=== PATIENT | male | born 1955 | race Caucasian/White ===

== ENCOUNTER 2019-01-23 21:42 | Emergency (ER) | payer MEDICAID ==
[~2019-01-23] VITALS: Wt 69.0 kg
[~2019-01-23 21:42] MED LIST: CIPR500T4 PO; METR500T PO; TRAM50TA2 PO
[2019-01-23 21:53] VITALS: BP 154/96; PULSE 75; RESP 18
--- NOTE | 2019-01-24 01:49 | ERD ---
ER Documentation Chief Complaint Chief Complaint RIGHT EYE REDNESS/ PAIN X'S 3 DAYS. DENIES TRAUMA HPI This is a 63-year-old male who presents to emerge department with complaints of right eye redness for about 3 days. Stated that he went to his primary care physician and was prescribed ketotifen. Patient developed lesions to the periorbital area. Denies eye trauma, changes in vision, pain in eye movement. Denies headache, head injury, loss of consciousness, dizziness, neck pain, neck stiffness, throat pain, difficulty swallowing, difficulty breathing lying flat, shoulder pain, chest pain, back pain, abdominal pain, nausea, vomiting, constipation, diarrhea, urinary symptoms, loss of bowel and bladder control, trauma, injury, falls, difficulty walking due to pain, numbness or tingling sensation, calf pain, recent travel, recent major surgery in the last 3 weeks, calf pain, recent long travel, recent exposure to any illness, recent antibiotic use in the last 3 months, fever, chills, seizures. Past medical history: Denies. Surgical history: Denies. Social: Denies smoking, use of alcoholic beverages, use of illegal drugs. ROS All systems reviewed and are negative except as per history of present illness. Medications Home Meds Active Scripts Gabapentin* (Gabapentin*) 100 Mg Capsule, 200 MG PO TID PRN for PAIN, #30 CAP Prov:DENYOSELINMARNIABRAHAM F 01/24/19 Acyclovir* (Zovirax*) 800 Mg Tablet, 800 MG PO 5 TIMES DAILY for 7 Days, TAB Prov:PASILABANMARNIAR F 01/24/19 Methylprednisolone* (Medrol* DOSE PACK) 4 Mg/Dose-Pack Tab.ds.pk, 4 MG PO . DIRECTED, #1 PACKET Prov:DENILAKAYCEEMARNIABRAHAM F 01/24/19 Tramadol HCl (Tramadol HCl) 50 Mg Tab, 50 MG PO Q6 PRN for PAIN, #20 TAB Prov:ANA ISSA. 07/11/15 Metronidazole* (Flagyl*) 500 Mg Tablet, 500 MG PO TID for 7 Days, TAB Prov:ANA ISSA 07/11/15 Ciprofloxacin Hcl* (Ciprofloxacin Hcl*) 500 Mg Tablet, 500 MG PO BID for 7 Days, TAB Prov:ANA ISSA. 07/11/15 Allergies Allergies: Coded Allergies: No Known Allergy (Unverified , 07/10/15) PMhx/Soc History of Surgery: No Anesthesia Reaction: No Hx Neurological Disorder: No Hx Respiratory Disorders: No Hx Cardiac Disorders: No Hx Psychiatric Problems: No Hx Miscellaneous Medical Probl: Yes (colon polyp 2017) Hx Alcohol Use: No Hx Substance Use: No Hx Tobacco Use: No Smoking Status: Never smoker Physical Exam Vitals Vital Signs Date Temp Pulse Resp B/P (MAP) Pulse Ox O2 O2 Flow FiO2 Time Delivery Rate 01/23/19 99.3 75 18 154/96 96 21:53 (115) Physical Exam Const: No acute distress Head: Atraumatic. Scalp has no vesicular lesions. Eyes: Left eye: No conjunctival injection. Good eye movement. No visual field loss. Right eye has conjunctival injection with no discharge. No pain in eye movement. No visual field loss. Right [place] feet has 2 lesions (upper and lower). ENT: Normal External Ears, Nose and Mouth. Nose: Noted multiple small vesicular lesions to right/midline and almost crossing the left side of the nose. Neck: Full range of motion. No meningismus. Resp: Clear to auscultation bilaterally Cardio: Regular rate and rhythm, no murmurs Abd: Soft, non tender, non distended. Normal bowel sounds Skin: No petechiae or rashes Back: No midline or flank tenderness Ext: No cyanosis, or edema Neur: Awake and alert. No neurological deficits. Psych: Normal Mood and Affect Results 24 hrs Current Medications Medications Dose Sig/Yulissa Start Time Status Last (Trade) Ordered Route PRN Stop Time Admin Dose Reason Admin Tetracaine 1 drop ONCE ONCE 01/24/19 DC HCl RIGHT EYE 02:00 (Tetracaine 01/24/19 02:01 0.5% Steri-Unit Harmony) Fluorescein 1 strip ONCE ONCE 01/24/19 DC Sodium RIGHT EYE 02:00 (Eqghg-B-Gwcb 01/24/19 02:01 p) Acyclovir 800 mg ONCE ONCE 01/24/19 DC 01/24/19 (Zovirax) PO 04:30 05:00 01/24/19 04:31 Procedures/MDM Diagnostic tests: ED visual acuity: Left eye: 20/20. Right eye: 20/20. Bilateral eyes: 20/20. Right eye examination under Hough lamp: Tetracaine drop. Fluorescein staining. No obvious dendritic lesions noted. No obvious uptake. No signs of punctured globe/foreign bodies. This case was discussed with my supervising physician, Dr. Keenan Valverde who also examined the patient with me. We both agreed that there is no dendritic lesions to the patient right eye and patient is appropriate for out patient. Treatment: Acyclovir. Re-evaluation: There is no pain in eye movement. Patient denies pain in his eyes. Patient denies visual changes. No visual field loss. No neurological deficits. Differential diagnosis I have low suspicion for herpes shingles ophthalmicus, acute closure angle glaucoma, retained foreign body, punctured globe. Final diagnosis: Shingles. Prescription: Acyclovir. Medrol Dosepak. Continue taking his prescribed eye drops eyedrops. Follow-up with PCP in the next 24-48 hours. Come back here in the emergency department for any new symptoms or any worsening symptoms. All questions and concerns were answered. Patient and family members verbalized understanding and agreed with plan of care. Hemodynamically stable on discharge. Departure Diagnosis: Primary Impression: Shingles Additional Impression: Conjunctivitis Condition: Stable Additional Instructions: Follow-up with PCP in the next 24-48 hours. Come back here in the emergency department for any new symptoms or any worsening symptoms. FINESSE BURGESS Jan 24, 2019 01:49
[2019-01-24] MEDS ORDERED: FLUORESCEIN STRIP RIGHT EYE ONE (02:00)
[2019-01-24] MEDS ORDERED: TETRACAINE 0.5% 4 ML OPH RIGHT EYE ONE (02:00)
[2019-01-24] MEDS ORDERED: MED4DP PO (04:20)
[2019-01-24] MEDS ORDERED: ACYC800T5 PO (04:21)
[2019-01-24] MEDS ORDERED: GABA100C14 PO (04:22)
[2019-01-24] MEDS ORDERED: ACYCLOVIR 800 MG TAB PO ONE (04:30)
== END 2019-01-24 05:09 | disposition home or self-care (01) ==
LOC: FTE 21:42
DX: B02.9 Zoster without complications (principal); H10.9 Unspecified conjunctivitis
CPT/HCPCS: Z7610 ×2; 99283

== ENCOUNTER 2019-05-14 13:10 | Emergency (ER) | payer MEDICAID ==
[~2019-05-14] VITALS: Ht 162.6 cm; Wt 68.5 kg
[~2019-05-14 13:10] MED LIST changes: +ACYC800T5 PO; +GABA100C14 PO; +MED4DP PO
[2019-05-14 13:11] VITALS: Ht 162.6 cm; Wt 68.5 kg
[2019-05-14] MEDS ORDERED: SOD CHLORIDE 0.9% 1,000 ML IV STA (13:45)
[2019-05-14] MEDS ORDERED: ONDANSETRON 4 MG INJ IV STA ×2 (13:45→19:06)
[2019-05-14] MEDS ORDERED: HYDROmorphONE 1 MG/ML SYG IV STA (13:45)
[2019-05-14] MEDS ORDERED: IBUP-1542 PO (13:49)
[2019-05-14] MEDS ORDERED: IOHEXOL 300MG/ML 150 ML BTL ONE (15:24)
[2019-05-14] MEDS ORDERED: SOD CHLORIDE 0.9% 100 ML ONE (15:24)
--- NOTE | 2019-05-14 18:39 | ERD ---
ER Documentation Chief Complaint Chief Complaint Pt c/o RUQ pain since last night, vomiting this morning HPI This is 64-year-old male who is complaining of onset last night of some gradual mid abdominal pain and some right sided upper abdominal pain. Pain is constant crampy had nausea vomiting this morning x1 was nonbilious nonbloody. No diarrhea. Says the pain is not worse with eating. No chest pain or shortness of breath. Pain does not radiate to the back and there is no back pain. No dysuria or hematuria. ROS All systems reviewed and are negative except as per history of present illness. Medications Home Meds Active Scripts Hydrocodone/Acetaminophen ([place] 10-325 Tablet) 1 Each Tablet, 1 TAB PO Q6H PRN for PAIN, #16 TAB Prov:THERESA MARCOS. DO 05/14/19 Metronidazole* (Flagyl*) 500 Mg Tablet, 500 MG PO TID for 7 Days, TAB Prov:CHELSI MARCOSS A. DO 05/14/19 Ciprofloxacin Hcl* (Ciprofloxacin Hcl*) 500 Mg Tablet, 500 MG PO BID for 7 Days, TAB Prov:WILMAR MARCOSSTTOSHAS A. DO 05/14/19 Reported Medications Ibuprofen* (Ibuprofen*) 600 Mg Tablet, 600 MG PO NEEDED, TAB 05/14/19 Discontinued Scripts Gabapentin* (Gabapentin*) 100 Mg Capsule, 200 MG PO TID PRN for PAIN, #30 CAP Prov:FINESSE BURGESS F 01/24/19 Acyclovir* (Zovirax*) 800 Mg Tablet, 800 MG PO 5 TIMES DAILY for 7 Days, TAB Prov:FINESSE BURGESS F 01/24/19 Methylprednisolone* (Medrol* DOSE PACK) 4 Mg/Dose-Pack Tab.ds.pk, 4 MG PO . DIRECTED, #1 PACKET Prov:PASILAFINESSE BENOIT F 01/24/19 Tramadol HCl (Tramadol HCl) 50 Mg Tab, 50 MG PO Q6 PRN for PAIN, #20 TAB Prov:ANA ISSA. 07/11/15 Metronidazole* (Flagyl*) 500 Mg Tablet, 500 MG PO TID for 7 Days, TAB Prov:ANA ISSA 07/11/15 Ciprofloxacin Hcl* (Ciprofloxacin Hcl*) 500 Mg Tablet, 500 MG PO BID for 7 Days, TAB Prov:ANA ISSA 07/11/15 Allergies Allergies: Coded Allergies: No Known Allergy (Unverified , 05/14/19) PMhx/Soc History of Surgery: No Anesthesia Reaction: No Hx Neurological Disorder: No Hx Respiratory Disorders: No Hx Cardiac Disorders: No Hx Psychiatric Problems: No Hx Miscellaneous Medical Probl: Yes (colon polyp 2017, diverticulosis) Hx Alcohol Use: No Hx Substance Use: No Hx Tobacco Use: No Smoking Status: Never smoker FmHx Family History: No coronary disease Physical Exam Vitals Vital Signs Date Temp Pulse Resp B/P (MAP) Pulse Ox O2 O2 Flow FiO2 Time Delivery Rate 05/14/19 86 16 152/98 95 Room Air 18:00 (116) 05/14/19 83 16 143/92 97 Room Air 17:00 (109) 05/14/19 81 16 150/95 94 Room Air 16:15 (113) 05/14/19 83 16 153/92 96 Room Air 14:27 (112) 05/14/19 98.2 76 16 172/96 100 13:11 (121) Physical Exam Const: Well-developed, well-nourished Head: Atraumatic, normocephalic Eyes: Normal Conjunctiva, PERRLA, EOMI, normal sclera, no nystagmus ENT: Normal External Ears, Nose and Mouth, moist mucus membranes. Neck: Full range of motion. No meningismus, no lymphadenopathy. Resp: Clear to auscultation bilaterally, no wheezing, rhonchi, rales Cardio: Regular rate and rhythm, no murmurs, S1 S2 present Abd: Soft, mild diffuse mid tenderness with more tenderness than right upper quadrant, non distended. Normal bowel sounds, no guarding or rebound, no pulsitile abdominal masses or bruits Skin: No petechiae or rashes, no ecchymosis , no maculopapular rash Back: No midline or flank tenderness Ext: No cyanosis, or edema, FROM x 4, normal inspection, neurovascularly intact x 4 Neur: Awake and alert, STR 5/5 x 4, sensation intact x 4, no focal findings, cerebellum intact Psych: Normal Mood and Affect Result Diagram: 05/14/19 1402 05/14/19 1402 Results 24 hrs Laboratory Tests Test 05/14/19 14:02 White Blood Count 10.8 10^3/ul Red Blood Count 5.08 10^6/ul Hemoglobin 14.7 g/dl Hematocrit 43.5 % Mean Corpuscular Volume 85.6 fl Mean Corpuscular Hemoglobin 28.9 pg Mean Corpuscular Hemoglobin Concent 33.8 g/dl Red Cell Distribution Width 12.6 % Platelet Count 196 10^3/UL Mean Platelet Volume 9.4 fl Immature Granulocytes % 0.400 % Neutrophils % 89.9 % Lymphocytes % 6.2 % Monocytes % 3.2 % Eosinophils % 0.0 % Basophils % 0.3 % Nucleated Red Blood Cells % 0.0 /100WBC Immature Granulocytes # 0.040 10^3/ul Neutrophils # 9.7 10^3/ul Lymphocytes # 0.7 10^3/ul Monocytes # 0.3 10^3/ul Eosinophils # 0.0 10^3/ul Basophils # 0.0 10^3/ul Nucleated Red Blood Cells # 0.0 10^3/ul Sodium Level 137 mmol/L Potassium Level 3.3 mmol/L Chloride Level 99 mmol/L Carbon Dioxide Level 28 mmol/L Anion Gap 10 Blood Urea Nitrogen 13 mg/dl Creatinine 0.62 mg/dl Est Glomerular Filtrat Rate mL/min > 60 mL/min Glucose Level 144 mg/dl Calcium Level 8.8 mg/dl Total Bilirubin 0.7 mg/dl Direct Bilirubin 0.00 mg/dl Indirect Bilirubin 0.7 mg/dl Aspartate Amino Transf (AST/SGOT) 60 IU/L Alanine Aminotransferase (ALT/SGPT) 45 IU/L Alkaline Phosphatase 122 IU/L Total Protein 7.6 g/dl Albumin 4.5 g/dl Globulin 3.10 g/dl Albumin/Globulin Ratio 1.45 Lipase 50 U/L Current Medications Medications Dose Sig/Yulissa Start Time Status Last (Trade) Ordered Route PRN Stop Time Admin Dose Reason Admin Sodium 1,000 ml @ Q1H STAT 05/14/19 DC 05/14/19 Chloride 1,000 mls/hr IV 13:45 13:58 05/14/19 14:44 1 mg ONCE STAT 05/14/19 DC 05/14/19 Hydromorphone IV 13:45 13:57 HCl 05/14/19 13:51 (Dilaudid) Ondansetron 4 mg ONCE STAT 05/14/19 DC 05/14/19 HCl (Zofran IV 13:45 13:58 Inj) 05/14/19 13:51 IV Flush 10 ml STK-MED 05/14/19 DC (NS 10 ml) ONCE .ROUTE 15:24 05/14/19 15:25 Sodium 100 ml @ ud STK-MED 05/14/19 DC Chloride ONCE .ROUTE 15:24 05/14/19 15:25 Iohexol 150 ml STK-MED 05/14/19 DC (Omnipaque ONCE .ROUTE 15:24 300mg/ ml) 05/14/19 15:25 Morphine 4 mg ONCE STAT 05/14/19 DC Sulfate IV 19:06 (morphine) 05/14/19 19:07 Ondansetron 4 mg ONCE STAT 05/14/19 DC HCl (Zofran IV 19:06 Inj) 05/14/19 19:07 Procedures/[place] [id number] Radiology Main Line: [phone] DIAGNOSTIC IMAGING REPORT Patient: YUE MENDOZA : 1955 Age: 64 Sex: M MR #: [id number] DOS: 05/14/19 1345 Ordering MD: THERESA MARCOS DO Location: E/R Room/Bed: PROCEDURE: CT ABDOMEN AND PELVIS WITH IV CONTRAST. CLINICAL INDICATION: Abdominal pain TECHNIQUE: CT scan of the abdomen and pelvis with contrast was performed on a multidetector high-resolution CT scanner following the use of IV contrast. 100 cc Omnipaque-300 was administered. Coronal and sagittal reformatted images were obtained from the axial source images. Images were reviewed on a high-resolution PACS workstation. The total exam CTDI equals 7.5 mGy and the total exam DLP equals 152.6 mGy-cm. One or more of the following dose reduction techniques were used: Automated exposure control. Adjustment of the mA and/or kV according to patient size. Use of iterative reconstruction technique. DICOM images are available. COMPARISON: CT 07/10/2015 FINDINGS: CT abdomen: Bilateral lower lobe atelectasis. Heart size is mildly enlarged. No significant pericardial effusion. There is right lower lobe calcified granuloma measuring 7.2 mm. Hepatic morphology is within limits. No gross masses or lesions. There is questionable pericholecystic fluid. No gross evidence of radiopaque gallstones. No intrahepatic or extrahepatic biliary dilatation. The spleen and pancreas are within normal limits. Both adrenal glands are within normal limits. Both kidneys are visualized. The right kidney is malrotated. There is no evidence of obstruction or hydronephrosis within both kidneys. There are bilateral renal cysts. The visualized GI tract demonstrates thickening of the renee of the stomach. Normal caliber loops of small and large bowel noted. No evidence of bowel obstruction. Stool filled loops of large bowel suggestive of constipation. The appendix is within normal limits. Mild atherosclerotic calcification of the aorta. Aorta is tortuous. No same retroperitoneal lymphadenopathy. CT pelvis: There is extensive diverticulosis of the sigmoid colon. Minimal adjacent fatty stranding is identified. Bladder is unremarkable. The prostate gland is normal size. Small fat-containing right inguinal hernia. No pelvic free fluid or lympha denopathy. The visualized osseous structures demonstrate mild degenerative changes of the spine. IMPRESSION: 1. Extensive sigmoid diverticulosis. There is borderline fatty stranding adjacent to the sigmoid colon, suggestive of a mild diverticulitis. No perforation or focal fluid collections. 2. No evidence of bowel obstruction. Mild constipation. The appendix is within normal limits. 3. Malrotated right kidney. No evidence of obstruction or hydronephrosis within both kidneys. Duplicated left-sided renal collecting system. 4. Questionable pericholecystic fluid. No gross radiopaque gallstones. Recommend correlation with ultrasound if clinically indicated. 5. No evidence of free fluid or free air. No gross focal fluid collections. RPTAT: AAPP Physician Abdoul Date Time Electronically viewed and signed by Physician Abdoul on 05/14/2019 15:47 JL/ CC: THERESA MARCOS DO [id number] [place] [id number] Radiology Main Line: [phone] DIAGNOSTIC IMAGING REPORT Patient: YUE MENDOZA : 1955 Age: 64 Sex: M MR #: [id number] DOS: 05/14/19 0000 Ordering MD: THERESA MARCOS DO Location: E/R Room/Bed: PROCEDURE: US Abdomen (right upper quadrant). CLINICAL INDICATION: Abdominal pain TECHNIQUE: Multiple real-time longitudinal and transverse images of the right upper quadrant of the abdomen were acquired utilizing a curved array transducer. Images were reviewed on a high-resolution PACS workstation. COMPARISON: July 10, 2015 FINDINGS: The liver is normal in size and echogenicity without focal mass or intrahepatic biliary dilatation. The gallbladder is normal. There is no pericholecystic fluid or gallbladder wall thickening or gallstones. No intra or extrahepatic biliary dilatation is seen. The common bile duct measures 2.6 mm in maximal dimension. The visualized portions of the pancreas are unremarkable with obscuration of the tail of the pancreas. No free fluid is identified. The right kidney measures 9.9 cm in length. There is normal echogenicity within the right kidney. A 9 mm right renal cyst is present with questionable internal septation of calcification. There is no perinephric fluid collection. No hydronephrosis, mass, or calculus is seen. IMPRESSION: 9 mm right renal cyst is present with questionable internal septation of calcification. Otherwise, unremarkable right upper quadrant ultrasound. RPTAT: JJ .Gonzalo Encinas MD, MD Date Time Electronically viewed and signed by .Gonzalo Encinas MD, on 05/14/2019 14:28 .A/ CC: THERESA MARCOS DO [id number] Patient has no gallstones. Blood work looks relatively stable and he has evidence of some mild diverticulitis. Will discharge home with Cipro Flagyl and [place] Departure Diagnosis: Primary Impression: Diverticulitis Condition: Stable THERESA MARCOS DO May 14, 2019 18:31
[2019-05-14] MEDS ORDERED: morphine 4 MG/ML VIAL IV STA (19:06)
[2019-05-14] MEDS ORDERED: HYDR-3980 PO (19:09)
[2019-05-14] MEDS ORDERED: CIPR500T4 PO (19:09)
[2019-05-14] MEDS ORDERED: METR500T PO (19:09)
[2019-05-14 19:36] VITALS: BP 141/85; PULSE 91; RESP 18
== END 2019-05-14 19:39 | disposition home or self-care (01) ==
LOC: E/R 13:10
DX: K57.32 Diverticulitis of large intestine without perforation or abscess without bleeding (principal)
CPT/HCPCS: 74177; 76705; 80053; 83690; 85025; J1170; J2270; J2405; J7030; Q9967; Z7610; 36415; 96361; 96374; 96375; 96376